=== PATIENT | female | born 1975 | race Caucasian/White ===

== ENCOUNTER 2022-11-16 14:15 | Emergency (ER) | payer BC, SELFPAY ==
--- NOTE | ~2022-11-16 | XR_ITS ---
EXAM: XR abdomen/kub 1V DATE: 11/16/2022 15:38 HISTORY: left upper abd pain, bloating . COMPARISON: None available. FINDINGS: Clear lung bases. Normal bowel gas pattern. No organomegaly. Pelvic phleboliths. Mild lumb ar scoliosis. Mild bilateral hip osteoarthritis. IMPRESSION: No radiographic evidence of obstruction or ileus. Reviewed, dictated and finalized at location K.
[2022-11-16 14:36] VITALS: BP 139/93; PULSE 83; RESP 16; TEMP 37.3; O2SAT 99
[2022-11-16 14:38] VITALS: BP 139/93; PULSE 83; RESP 16; TEMP 37.3; O2SAT 99
--- NOTE | 2022-11-16 15:14 | ED.ABDPAIN ---
HPI - Abdominal Pain General Chief Complaint: Abdominal Pain Stated Complaint: Flank Pain Time Seen by Provider: 11/16/22 15:14 Source: patient and RN notes reviewed Mode of arrival: ambulatory Limitations: no limitations History of Present Illness HPI narrative: 47-year-old female presented for complaint of intermittent pain to the left upper abdomen and lower rib pain for about 3 days. Pain is worse with taking a deep breath, coughing, or after eating. She describes the pain as a bloating sensation. Reports occasional diarrhea for the last 5 days. She denies cough, vomiting constipation, fevers or chills. She is taking Gas-X and Prilosec without significant change in symptoms. Related Data Allergies Allergy/AdvReac Type Severity Reaction Status Date / Time No Known Allergies Allergy Verified 11/16/22 14:37 Review of Systems Review of Systems: CONSTITUTIONAL: Denies body aches, fever, chills ENT: Denies rhinorrhea, congestion CARDIOVASCULAR: Denies chest pain, palpitations, or edema. RESPIRATORY: Denies cough or dyspnea. GASTROINTESTINAL: Endorses abdominal pain, nausea, diarrhea. Denies hematochezia, melena, hematemesis GENITOURINARY: Denies dysuria, hematuria, or CVA tenderness. SKIN: Denies rash, itching, or wounds. MUSCULOSKELETAL: Denies back pain, joint pain, or myalgia. NEUROLOGIC: Denies headache, numbness, tingling, or weakness. All systems reviewed & are unremarkable except as noted in HPI and below PMFSH Past Medical History Medical History (Updated 11/16/22 @ 16:28 by Mónica Joseph, MARK) No pertinent past medical history Comments At time of signature, I have reviewed and agree with nursing past medical, surgical, social and family history unless otherwise noted. Please see nursing chart for further information. There is no relevant family history pertinent to the presenting complaint Exam Narrative: GENERAL: Well-appearing, and in no acute distress. EYES: EOMI. Conjunctivae normal. ENT: Mucous membranes pink and moist. CHEST: No respiratory distress. Clear to auscultation. No rib tenderness. HEART: Regular rate and rhythm. No murmur appreciated. Normal peripheral pulses. ABDOMEN: abd soft, mildly distended, normal active bowel sounds. Nontender abdomen; No guarding, rebound tenderness, asymmetry EXTREMITIES: Normal range of motion. No edema. SKIN: Warm, dry, no rash. Capillary refill normal. Normal skin turgor. NEURO: No focal deficits. Alert and oriented x3. PSYCH: anxious Course Course Emergency Course: Patient is aware of diagnosis, understands and agrees to treatment plan. Anticipatory guidance given. Patient agrees to follow-up as directed and is aware of reasons to seek care at the emergency department. Portions of this record may have been created with voice recognition software Level of Care: Express Care Visit Vital Signs Vital signs: Vital Signs Temperature 99.2 F 11/16/22 14:36 Pulse Rate 83 11/16/22 14:36 Respiratory Rate 16 11/16/22 14:36 Blood Pressure 139/93 H 11/16/22 14:36 Pulse Oximetry 99 11/16/22 14:36 Oxygen Delivery Room Air 11/16/22 14:36 Temperature 99.2 F 11/16/22 14:38 Pulse Rate 83 11/16/22 14:38 Respiratory Rate 16 11/16/22 14:38 Blood Pressure 139/93 H 11/16/22 14:38 Pulse Oximetry 99 11/16/22 14:38 Oxygen Delivery Room Air 11/16/22 14:38 MDM - Abdominal Pain MDM Narrative Medical decision making narrative: Results of x-ray reviewed with patient. Will treated this time for constipation, and she is advised on signs and symptoms to for the ER. Discussed physical exam findings and multiple etiologies of patient's symptoms. Advised supportive measures and signs/symptoms to go to the ER. Pt is appropriate for outpt treatment and f/u. Differential Diagnosis Differential diagnosis: Likely abdominal pain, calculus of kidney, constipation, gastroenteritis and small bowel obstruction Lab Data La
== END 2022-11-16 16:27 | disposition home or self-care (01) ==
PROVIDERS: Emergency Provider Nurse Practitioner Family
DX: R10.12 Left upper quadrant pain (principal)
CPT/HCPCS: 74018; 81003; 87086; 87088; 99203; G0463